=== PATIENT | female | born 1940 | race American Indian/Alaskan Native ===

== ENCOUNTER 2021-06-23 09:04 | Observation (INO) | payer MEDICARE ==
--- NOTE | 2021-06-23 09:18 | Emergency Department Report ---
ED General Adult HPI - General Chief complaint: Arrhythmia/Palpitations Stated complaint: PALPITATIONS/SYNCOPE PUI?: No Time Seen by Provider: 06/23/21 09:09 Source: patient, EMS (Verbal report received from emergency medical services. EMS documentation not available at time of chart dictation ), RN notes reviewed Mode of arrival: Stretcher Limitations: Physical Limitation - History of Present Illness Initial comments: Primary CARE doctor: Ed maciel The patient is an 80-year-old female. She is not known to myself previously. She has a history of hypertension. She also has a history of possible GERD/gastritis. She is brought to the hospital today by emergency medical services. History primarily obtained from EMS. EMS brings the patient to the ER as the patient had an episode of syncope yesterday and this morning, and may have had some chest pain. The patient herself is a little bit confused. She denies physical pain to myself. She indicates nothing is bothering her at this time. Patient not currently accompanied by friends or family at this time, and does not describe qualitative nature of symptoms, exacerbating factors leading factors or aggravating factors. To me, the patient currently denies headache, neck pain, abdominal pain, vomiting, urinary symptoms, focal extremity weakness and numbness. -: days(s) (As per EMS, last night and this morning.) Location: chest (As per EMS chest. Patient denies chest pain to myself) - Related Data Home Medications Medication Instructions Recorded Confirmed Last Taken Metoprolol [Lopressor] 12.5 mg PO BID 06/23/21 06/23/21 Unknown Pantoprazole [Protonix] 40 mg PO BID 06/23/21 06/23/21 Unknown Sertraline [Zoloft] 25 mg PO QDAY 06/23/21 06/23/21 Unknown traZODone [Desyrel] 100 mg PO QHS 06/23/21 06/23/21 Unknown Allergies Allergy/AdvReac Type Severity Reaction Status Date / Time gabapentin AdvReac Unknown Verified 06/23/21 09:41 lidocaine AdvReac Unknown Verified 06/23/21 10:17 naproxen AdvReac Unknown Verified 06/23/21 10:17 nut - unspecified AdvReac Unknown Verified 06/23/21 10:17 onion AdvReac Unknown Verified 06/23/21 09:41 sucralfate AdvReac Unknown Verified 06/23/21 10:17 ED Review of Systems ROS: Stated complaint: PALPITATIONS/SYNCOPE Other details as noted in HPI Constitutional: denies: fever Eyes: denies: eye discharge Respiratory: denies: cough Cardiovascular: chest pain, syncope Gastrointestinal: denies: abdominal pain, vomiting, hematemesis, melena, hematochezia Genitourinary: denies: dysuria Neurological: weakness, confusion ED Past Medical Hx - Medications Home Medications: Home Medications Medication Instructions Recorded Confirmed Last Taken Type Metoprolol [Lopressor] 12.5 mg PO BID 06/23/21 06/23/21 Unknown History Pantoprazole [Protonix] 40 mg PO BID 06/23/21 06/23/21 Unknown History Sertraline [Zoloft] 25 mg PO QDAY 06/23/21 06/23/21 Unknown History traZODone [Desyrel] 100 mg PO QHS 06/23/21 06/23/21 Unknown History ED Physical Exam - General Limitations: Physical Limitation, Other (Patient is a poor historian) General appearance: alert, in no apparent distress - Head Head exam: Present: atraumatic, normocephalic - Eye Eye exam: Present: normal appearance, EOMI. Absent: nystagmus - ENT ENT exam: Present: normal exam, normal orophraynx, mucous membranes moist, normal external ear exam - Neck Neck exam: Present: normal inspection, full ROM. Absent: tenderness, meningismus - Respiratory Respiratory exam: Present: normal lung sounds bilaterally. Absent: respiratory distress, wheezes, rales, rhonchi, stridor, decreased breath sounds - Cardiovascular Cardiovascular Exam: Present: normal rhythm, bradycardia, normal heart sounds. Absent: tachycardia, irregular rhythm, systolic murmur, diastolic murmur, rubs, gallop - GI/Abdominal GI/Abdominal exam: Present: soft. Absent: distended, tenderness, guarding, rebound, rigid, pulsatile mass - Extremities Exam Extremities exam: Present: normal inspection, full ROM, other (2+ pulses noted in the bilateral upper and lower extremities. There is no palpable cord. negative Homans sign. Muscular compartments are soft. The pelvis is stable.). Absent: pedal edema, calf tenderness - Back Exam Back exam: Present: normal inspection, other (Scoliosis noted). Absent: tenderness, CVA tenderness (R), CVA tenderness (L), paraspinal tenderness, vertebral tenderness - Neurological Exam Neurological exam: Present: alert, other (No facial droop. Tongue midline. Extraocular movements intact bilaterally. Facial sensation intact to light touch in V1, V2, V3 distribution bilaterally. 5 and a 5 strength in 4 extremities. Sensation intact to light touch in 4 extremities.) - Psychiatric Psychiatric exam: Present: flat affect - Skin Skin exam: Present: warm, dry, intact, normal color. Absent: rash ED Course Vital Signs 06/23/21 06/23/21 06/23/21 09:16 09:30 09:35 Temperature 97.9 F Pulse Rate 54 L 56 L Respiratory 16 20 Rate Blood Pressure 150/68 150/49 O2 Sat by Pulse 85 98 99 Oximetry 06/23/21 06/23/21 06/23/21 09:45 10:00 10:15 Temperature Pulse Rate 55 L 55 L 53 L Respiratory 16 13 15 Rate Blood Pressure 158/70 152/64 163/71 O2 Sat by Pulse 100 85 100 Oximetry 06/23/21 06/23/21 06/23/21 10:30 10:45 11:00 Temperature Pulse Rate 51 L 50 L 46 L Respiratory 12 12 11 L Rate Blood Pressure 161/72 154/71 147/60 O2 Sat by Pulse 100 100 100 Oximetry 06/23/21 06/23/21 06/23/21 11:15 11:30 12:17 Temperature Pulse Rate 56 L 68 Respiratory 11 L 15 Rate Blood Pressure 156/61 157/63 157/63 O2 Sat by Pulse 99 Oximetry 06/23/21 06/23/21 06/23/21 12:31 12:45 13:00 Temperature Pulse Rate 63 52 L 50 L Respiratory 13 15 15 Rate Blood Pressure 167/72 157/63 166/66 O2 Sat by Pulse 98 99 98 Oximetry 06/23/21 06/23/21 06/23/21 13:15 13:31 13:45 Temperature Pulse Rate 60 48 L 47 L Respiratory 13 12 11 L Rate Blood Pressure 166/66 166/66 166/66 O2 Sat by Pulse 100 99 100 Oximetry 06/23/21 06/23/21 06/23/21 14:00 14:15 14:31 Temperature Pulse Rate 47 L 67 57 L Respiratory 12 13 12 Rate Blood Pressure 168/69 168/69 168/69 O2 Sat by Pulse 100 100 100 Oximetry 06/23/21 06/23/21 14:45 15:01 Temperature Pulse Rate 76 89 Respiratory 14 21 Rate Blood Pressure 168/69 168/69 O2 Sat by Pulse 100 Oximetry - Reevaluation(s) Reevaluation #1: 06/23/21 10:19 Differential diagnosis, including but not limited to: Orthostasis, vagal event, structural cardiac disease, thyroid derangement, pneumonia, urinary tract infection, pulmonary embolism Assessment and plan: 80-year-old female, who was afebrile, with reassuring vital signs, who is not in any acute distress at this time, with an EMS articulated complaint of syncope x2, and chest pain. The patient is not currently tachycardic, tachypneic or hypoxic She is a little bit confused at this time. Laboratory studies pending, CT scan of the brain and chest pending. Urinalysis pending. She is a [facility] patient so we will discuss with their help physician. Anticipate admission. Reevaluation #2: 06/23/21 11:07 Laboratory studies reviewed and appreciated. CT scans pending. Contacted [facility] physician, Dr. Winter Discussed history, physical, pertinent laboratory studies, pending imaging studies and plan of care. She will contact the patient's son/power of deputy commonwealth's attorney's, and determine if they are amenable to being moved to a [facility] facility. 06/23/21 13:15 Patient resting comfortably in stretcher, in no acute distress. CT scan negative for acute findings. CT scan of the chest negative for acute findings. Pulmonary hypertension is suggested. Patient had contrast extravasation in the left upper extremity. I have perso dewayne evaluated the arm. It is warm, but nontender, the compartments are not tense, warm compresses are applied, 2+ pulses noted in the left upper extremity, with good capillary refill. Elevate the extremity, 5 warm compresses, supportive care 06/23/21 13:17 discussed with the aforementioned [facility] physician. They are trying to set up a bed in one of the [facility] facilities. [facility] physician states that she has discussed with patient's family/power of deputy commonwealth's attorney. They have provided consent for transfer. 06/23/21 14:10 Awaiting callback from [facility]. Awaiting bed placement. No acute distress Reevaluation #3: 06/23/21 15:03 Patient is agitated. She is trying to get up and out of bed. She is demented and lacks decision-making capacity. She will be medicated with Versed Called back to [facility]. Requested update on bed placement. They inform us that they are still awaiting bed placement. care will be transferred to the oncoming ER physician, to follow-up on [facility] recommendations. Please note that this patient is experiencing a delay in ultimate disposition, secondary to us waiting for [facility] to assign a bed.. They placed this patient in for a bed request 2015. It is now 3:06 PM. If [facility] not able to accommodate with the bed at one of their facilities, we will admit the patient to this hospital. 06/23/21 15:29 Change in plans. Patient will be admitted here to this hospital. She has received multiple doses of midazolam. We discussed with [facility] physician, Dash Ward not able to arrange transportation until 9:00 this evening. In my opinion this represents an unsafe situation. Hospital physician, Dr. Bryn Eubanks, To admit patient to the medical service. [facility] physician has provided authorization for this patient to be admitted to this hospital. Patient given Plavix given her documented allergy/intolerance to NSAIDs and/or aspirin ED Medical Decision Making - Lab Data Result diagrams: 06/23/21 09:51 06/23/21 09:51 Vital Signs 06/23/21 09:35 Temperature 97.9 F Pulse Rate 56 L Respiratory 20 Rate Blood Pressure 150/49 O2 Sat by Pulse 99 Oximetry Lab Results 06/23/21 06/23/21 06/23/21 Range/Units 09:50 09:50 09:51 WBC 3.6 L (4.5-11.0) K/mm3 RBC 4.46 (3.65-5.03) M/mm3 Hgb 11.0 (10.1-14.3) gm/dl Hct 35.5 (30.3-42.9) % MCV 80 (79-97) fl MCH 25 L (28-32) pg MCHC 31 (30-34) % RDW 16.3 H (13.2-15.2) % Plt Count 213 (140-440) K/mm3 Lymph % (Auto) 34.5 (13.4-35.0) % Delta % (Auto) 8.2 H (0.0-7.3) % Eos % (Auto) 0.6 (0.0-4.3) % Baso % (Auto) 0.4 (0.0-1.8) % Lymph # (Auto) 1.2 (1.2-5.4) K/mm3 Delta # (Auto) 0.3 (0.0-0.8) K/mm3 Eos # (Auto) 0.0 (0.0-0.4) K/mm3 Baso # (Auto) 0.0 (0.0-0.1) K/mm3 Seg Neutrophils % 56.3 (40.0-70.0) % Seg Neutrophils # 2.0 (1.8-7.7) K/mm3 PT 14.6 (12.2-14.9) Sec. INR 1.03 (0.87-1.13) D-Dimer 770.24 H (0-234) ng/mlDDU Sodium (137-145) mmol/L Potassium (3.6-5.0) mmol/L Chloride (98-107) mmol/L Carbon Dioxide (22-30) mmol/L Anion Gap mmol/L BUN (7-17) mg/dL Creatinine (0.6-1.2) mg/dL Estimated GFR ml/min BUN/Creatinine Ratio % Glucose (65-100) mg/dL Calcium (8.4-10.2) mg/dL Magnesium (1.7-2.3) mg/dL Total Bilirubin (0.1-1.2) mg/dL AST (5-40) units/L ALT (7-56) units/L Alkaline Phosphatase (35-129) units/L Troponin T (0.00-0.029) ng/mL Total Protein (6.3-8.2) g/dL Albumin (3.9-5) g/dL Albumin/Globulin Ratio % TSH 0.236 L (0.270-4.200) mlU/mL Urine RBC (Auto) (0.0-6.0) /HPF U Epithel Cells (Auto) (0-13.0) /HPF 06/23/21 06/23/21 Range/Units 09:51 Unknown WBC (4.5-11.0) K/mm3 RBC (3.65-5.03) M/mm3 Hgb (10.1-14.3) gm/dl Hct (30.3-42.9) % MCV (79-97) fl MCH (28-32) pg MCHC (30-34) % RDW (13.2-15.2) % Plt Count (140-440) K/mm3 Lymph % (Auto) (13.4-35.0) % Delta % (Auto) (0.0-7.3) % Eos % (Auto) (0.0-4.3) % Baso % (Auto) (0.0-1.8) % Lymph # (Auto) (1.2-5.4) K/mm3 Delta # (Auto) (0.0-0.8) K/mm3 Eos # (Auto) (0.0-0.4) K/mm3 Baso # (Auto) (0.0-0.1) K/mm3 Seg Neutrophils % (40.0-70.0) % Seg Neutrophils # (1.8-7.7) K/mm3 PT (12.2-14.9) Sec. INR (0.87-1.13) D-Dimer (0-234) ng/mlDDU Sodium 141 (137-145) mmol/L Potassium 3.6 (3.6-5.0) mmol/L Chloride 102.9 (98-107) mmol/L Carbon Dioxide 27 (22-30) mmol/L Anion Gap 15 mmol/L BUN 13 (7-17) mg/dL Creatinine 0.7 (0.6-1.2) mg/dL Estimated GFR > 60 ml/min BUN/Creatinine Ratio 19 % Glucose 87 (65-100) mg/dL Calcium 9.2 (8.4-10.2) mg/dL Magnesium 2.00 (1.7-2.3) mg/dL Total Bilirubin 0.60 (0.1-1.2) mg/dL AST 10 (5-40) units/L ALT 7 (7-56) units/L Alkaline Phosphatase 56 (35-129) units/L Troponin T < 0.010 (0.00-0.029) ng/mL Total Protein 6.6 (6.3-8.2) g/dL Albumin 4.0 (3.9-5) g/dL Albumin/Globulin Ratio 1.5 % TSH (0.270-4.200) mlU/mL Urine RBC (Auto) 3.0 (0.0-6.0) /HPF U Epithel Cells (Auto) 4.0 (0-13.0) /HPF - EKG Data -: EKG Interpreted by Pr EKG shows normal: sinus rhythm Rate: bradycardia - EKG Data When compared to previous EKG there are: previous EKG unavailable 06/23/21 10:18 The EKG is interpreted 09: 2 8 Sinus rhythm, bradycardia, rate 55 bpm. Normal axis, normal P wave axis, low voltage, poor R wave progression. Abnormal EKG. Not a STEMI. There is no prior for comparison. - Radiology Data Radiology results: pending, report reviewed, image reviewed [facility] [address] [place] [address] XRay Report Signed Patient: SYD FISH MR#: [id number] : 1940 Acct:[id number] Age/Sex: 80 / F ADM Date: 06/23/21 Loc: ED Attending Dr: Ordering Physician: NATE GILMAN MD Date of Service: 06/23/21 Procedure(s): XR chest 1V ap Accession Number(s): [id number] cc: NATE GILMAN MD Fluoro Time In Minutes: CHEST 1 VIEW 06/23/2021 9:15 AM INDICATION / CLINICAL INFORMATION: Dysrhythmia. COMPARISON: None available. FINDINGS: SUPPORT DEVICES: None. HEART / MEDIASTINUM: No significant abnormality. LUNGS / PLEURA: No significant pulm onary or pleural abnormality. No pneumothorax. 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 IMPRESSION: 1. No acute findings. Signer Name: Tree Graves DO Signed: 06/23/2021 10:28 AM Workstation Name: [id number] Transcribed By: NS Dictated By: TREE GRAVES DO Electronically Authenticated By: TREE GRAVES DO Signed Date/Time: 06/23/21 1028 DD/ [address] SCAN OF THE HEAD: INDICATION / CLINICAL INFORMATION: 80 years Female; syncope. TECHNIQUE: Routine CT head without contrast. All CT scans at this location are performed using CT dose reduction for ALARA by means of automated exposure control. COMPARISON: None. FINDINGS: BRAIN / INTRACRANIAL CONTENTS: No acute hemorrhage, mass effect, midline shift, hydrocephalus, or acute, large territorial infarct. No chronic infarct or encephalomalacia. Periventricular confluent low-attenuation areas and also focal low-attenuation white matter lesions due to chronic small vessel disease; moderate dilatation of right temporal horn tip suggesting moderate volume loss in the right hippocampus CRANIOCERVICAL JUNCTION: No significant abnormality. ORBITS: No significant abnormality of visualized orbits. SINUSES / MASTOIDS: No significant abnormality of the visualized paranasal sinuses or mastoid air cells. ADDITIO NAL FINDINGS: None. IMPRESSION: No acute focal parenchymal lesion Signer Name: Crissy Jiménez MD Signed: 06/23/2021 11:34 AM Workstation Name: [id number] CTA CHEST WITH CONTRAST INDICATION / CLINICAL INFORMATION: Chest pain, palpitations and syncope. TECHNIQUE: Axial CT images were obtained through the chest after injection of IV contrast. 3 plane MIP and/or 3D reconstructions were produced. All CT scans at this location are performed using CT dose reduction for ALARA by means of automated exposure control. COMPARISON: None available. FINDINGS: PULMONARY ARTERIES: No pulmonary emboli. Dilatation main pulmonary artery measuring 3.2 cm in diameter THORACIC AORTA: No significant abnormality. HEART: No significant abnormality. CORONARY ARTERY CALCIFICATION: None. MEDIASTINUM / HEATHER: No significant abnormality. PLEURA: No pleural effusion. No pneumothorax. LUNGS: No acute air space or interstitial disease. Dependent subsegmental atelectasis of bilateral lungs. ADDITIONAL FINDINGS: None. UPPER ABDOMEN: Simple cyst superior pole right kidney SKELETAL STRUCTURES: No si gnificant osseous abnormality. IMPRESSION: 1. No CT evidence for pulmonary embolism. 2. No acute findings. 3. Dilatation main pulmonary artery measuring 3.2 cm in diameter, could reflect pulmonary arterial hypertension. Signer Name: Edward Maldonado MD Signed: 06/23/2021 11:52 AM Workstation Name: [email or web address] Critical care attestation.: If time is entered above; I have spent that time in minutes in the direct care of this critically ill patient, excluding procedure time. ED Disposition Clinical Impression: History of chest pain, Dementia, History of syncope Disposition: 09 ADMITTED INPATIENT Is pt being admited?: Yes Does the pt Need Aspirin: Yes Condition: Good Heart Score - HEART Score History: Slightly suspicious EKG: Non-specific Age: > 65 Risk factors: 1-2 risk factors Troponin: < normal limit HEART Score: 4 - EKG Read Time Time EKG Completed: : EKG Read Time: :28 - Critical Actions Critical Actions: 4-6 pts:12-16.6% risk of adverse cardiac event. Should be admitted
[2021-06-23] MEDS ORDERED: ACETAMINOPHEN 500 MG TAB PO SCH (10:00)
[2021-06-23] MEDS ORDERED: NITROGLYCERIN 0.4 MG TAB SUBL SL PRN (10:00)
[2021-06-23] MEDS ORDERED: SODIUM CHLORIDE 0.9% 250ML 250 ML IV SCH (10:00)
[2021-06-23] MEDS ORDERED: PANTOPRAZOLE 40 MG INJ IV SCH (10:00)
[2021-06-23] MEDS ORDERED: ONDANSETRON 4 MG/2 ML INJ IV SCH (10:00)
--- NOTE | 2021-06-23 10:32 | XRay Report ---
CHEST 1 VIEW 06/23/2021 9:15 AM INDICATION / CLINICAL INFORMATION: Dysrhythmia. COMPARISON: None available. FINDINGS: SUPPORT DEVICES: None. HEART / MEDIASTINUM: No significant abnormality. LUNGS / PLEURA: No significant pulmonary or pleural abnormality. No pneumothorax. ADDITIONAL FINDINGS: Left reverse total shoulder arthroplasty. Degeneration of the right shoulder gir dle. IMPRESSION: 1. No acute findings. Signer Name: Tree Doe DO Signed: 06/23/2021 10:28 AM Workstation Name: [id number]
[2021-06-23 10:33] LABS: Amorphous Crystals,Urine 1+; Mucus,Urine 3+ /HPF; Renal Epithelial Cells,Urine <1 /LPF
[2021-06-23 10:38] LABS: Basophils % (Auto) 0.4 % (0.0-1.8); Eosinophils % (Auto) 0.6 % (0.0-4.3); Hematocrit 35.5 % (30.3-42.9); Lymphocytes # (Auto) 1.2 K/mm3 (1.2-5.4); Lymphocytes % (Auto) 34.5 % (13.4-35.0); Mean Corpuscular HGB Conc 31 % (30-34); Mean Corpuscular Volume 80 fl (79-97); Monocytes # (Auto) 0.3 K/mm3 (0.0-0.8); Monocytes % (Auto) 8.2 % (0.0-7.3); Platelet Count 213 K/mm3 (140-440); Red Blood Count 4.46 M/mm3 (3.65-5.03); Red Cell Distribution Width 16.3 % (13.2-15.2)
[2021-06-23 10:46] LABS: Alanine Aminotransferase 7 units/L (7-56); Blood Urea Nitrogen 13 mg/dL (7-17); Calcium 9.2 mg/dL (8.4-10.2); Hemolysis Index 3
[2021-06-23 10:48] LABS: BUN/Creatinine Ratio 19
[2021-06-23 10:58] LABS: INR 1.03 (0.87-1.13)
[2021-06-23 11:18] LABS: Bilirubin,Urine NEG (Negative); Blood,Urine NEG (Negative); Color,Urine Yellow (Yellow); Protein,Urine <15 mg/dL mg/dL (Negative)
--- NOTE | 2021-06-23 12:38 | Cat Scan Report ---
NONENHANCED CT SCAN OF THE HEAD: INDICATION / CLINICAL INFORMATION: 80 years Female; syncope. TECHNIQUE: Routine CT head without contrast. All CT scans at this location are performed using CT dos e reduction for ALARA by means of automated exposure control. COMPARISON: None. FINDINGS: BRAIN / INTRACRANIAL CONTENTS: No acute hemorrhage, mass effect, midline shift, hydrocephalus, or acu te, large territorial infarct. No chronic infarct or encephalomalacia. Periventricular confluent low- attenuation areas and also focal low-attenuation white matter lesions due to chronic small vessel dis ease; moderate dilatation of right temporal horn tip suggesting moderate volume loss in the right hip pocampus CRANIOCERVICAL JUNCTION: No significant abnormality. ORBITS: No significant abnormality of visualized orbits. SINUSES / MASTOIDS: No significant abnormality of the visualized paranasal sinuses or mastoid air dandre ls. ADDITIONAL FINDINGS: None. IMPRESSION: No acute focal parenchymal lesion Signer Name: Crissy Jiménez MD Signed: 06/23/2021 12:34 PM Workstation Name: [id number]
--- NOTE | 2021-06-23 12:57 | Cat Scan Report ---
CTA CHEST WITH CONTRAST INDICATION / CLINICAL INFORMATION: Chest pain, palpitations and syncope. TECHNIQUE: Axial CT images were obtained through the chest after injection of IV contrast. 3 plane NH P and/or 3D reconstructions were produced. All CT scans at this location are performed using CT dose reduction for ALARA by means of automated exposure control. COMPARISON: None available. FINDINGS: PULMONARY ARTERIES: No pulmonary emboli. Dilatation main pulmonary artery measuring 3.2 cm in diamete r THORACIC AORTA: No significant abnormality. HEART: No significant abnormality. CORONARY ARTERY CALCIFICATION: None. MEDIASTINUM / HEATHER: No significant abnormality. PLEURA: No pleural effusion. No pneumothorax. LUNGS: No acute air space or interstitial disease. Dependent subsegmental atelectasis of bilateral ken ngs. ADDITIONAL FINDINGS: None. UPPER ABDOMEN: Simple cyst superior pole right kidney SKELETAL STRUCTURES: No significant osseous abnormality. IMPRESSION: 1. No CT evidence for pulmonary embolism. 2. No acute findings. 3. Dilatation main pulmonary artery measuring 3.2 cm in diameter, could reflect pulmonary arterial hy pertension. Signer Name: Edward Maldonado MD Signed: 06/23/2021 12:52 PM Workstation Name: [email or web address]
[2021-06-23] MEDS ORDERED: CLOPIDOGREL 75 MG TAB PO ONE (13:18)
[2021-06-23] MEDS ORDERED: MIDAZOLAM 2 MG/2 ML INJ IV ONE ×3 (15:03→15:54)
[2021-06-23] MEDS ORDERED: LORazepam 2 MG/ML VIAL IV PRN (17:06)
--- NOTE | 2021-06-23 22:19 | History and Physical Report ---
History of Present Illness Date of examination: 06/23/21 Date of admission: 06/23/21 15:30 Chief complaint: Chest pain and syncope 1 day History of present illness: 80-year-old female with history of hypertension and depression from [facility] brought in by EMS for an episode of syncope yesterday and this morning. Also from chest pain. Chest pain is resolved. Patient has a very poor historian. No diaphoresis. No shortness of breath. No precipitating injury events for syncope yesterday and today. No fever or chills. Patient has been confused. No family at bedside. No dysuria fever or chills. -past medical history HTN,Gerd, depression - past surgical history unavailable - Family history unavailable - social history unavailable Review of Systems ROS: Stated complaint: PALPITATIONS/SYNCOPE Other details as noted in HPI Constitutional: denies: fever Eyes: denies: eye discharge Respiratory: denies: cough Cardiovascular: chest pain, syncope Gastrointestinal: denies: abdominal pain, vomiting, hematemesis, melena, hematochezia Genitourinary: denies: dysuria Neurological: weakness, confusion Medications and Allergies Allergies Allergy/AdvReac Type Severity Reaction Status Date / Time gabapentin AdvReac Unknown Verified 06/23/21 09:41 lidocaine AdvReac Unknown Verified 06/23/21 10:17 naproxen AdvReac Unknown Verified 06/23/21 10:17 nut - unspecified AdvReac Unknown Verified 06/23/21 10:17 onion AdvReac Unknown Verified 06/23/21 09:41 sucralfate AdvReac Unknown Verified 06/23/21 10:17 Home Medications Medication Instructions Recorded Confirmed Last Taken Type Metoprolol [Lopressor] 12.5 mg PO BID 06/23/21 06/23/21 Unknown History Pantoprazole [Protonix] 40 mg PO BID 06/23/21 06/23/21 Unknown History Sertraline [Zoloft] 25 mg PO QDAY 06/23/21 06/23/21 Unknown History traZODone [Desyrel] 100 mg PO QHS 06/23/21 06/23/21 Unknown History Active Meds: Active Medications Lorazepam (Lorazepam 2 Mg/Ml Vial) 2 mg IV Q3HR PRN PRN Reason: Agitation Last Admin: 06/23/21 17:13 Dose: 2 mg Documented by: Nitroglycerin (Nitroglycerin 0.4 Mg Tab Subl) 0.4 mg SL .Q5MIN PRN PRN Reason: Chest Pain Exam - Constitutional Vitals: Temp Pulse Resp BP Pulse Ox 97.9 F 47 L 14 158/73 99 06/23/21 09:35 06/23/21 17:31 06/23/21 17:31 06/23/21 17:31 06/23/21 21:05 General appearance: Present: no acute distress, well-nourished - EENT Eyes: Present: PERRL ENT: hearing intact, clear oral mucosa - Neck Neck: Present: supple, normal ROM - Respiratory Respiratory effort: normal Respiratory: bilateral: CTA - Cardiovascular Heart rate: 78 Rhythm: regular Heart Sounds: Present: S1 & S2. Absent: rub, click - Extremities Extremities: no ischemia, pulses intact, pulses symmetrical, No edema Peripheral Pulses: within normal limits - Abdominal General gastrointestinal: Present: soft, non-tender, non-distended, normal bowel sounds Female genitourinary: Present: normal - Rectal Rectal Exam: deferred - Integumentary Integumentary: Present: clear, warm, dry - Musculoskeletal Musculoskeletal: gait normal, strength equal bilaterally - Psychiatric Psychiatric: appropriate mood/affect, intact judgment & insight - Neurologic Neurologic: CNII-XII intact, moves all extremities - Allied Health Allied health notes reviewed: nursing, case management HEART Score - HEART Score History: Moderately suspicious EKG: Non-specific Age: > 65 Risk factors: 1-2 risk factors Troponin: Troponin T < 0.010 ng/mL (0.00-0.029) 06/23/21 09:51 Troponin: < normal limit HEART Score: 5 - Critical Actions Critical Actions: 4-6 pts:12-16.6% risk of adverse cardiac event. Should be ad mitted Results - Labs CBC & Chem 7: 06/24/21 05:11 06/24/21 05:11 Labs: Laboratory Last Values WBC 3.6 K/mm3 (4.5-11.0) L 06/23/21 09:51 RBC 4.46 M/mm3 (3.65-5.03) 06/23/21 09:51 Hgb 11.0 gm/dl (10.1-14.3) 06/23/21 09:51 Hct 35.5 % (30.3-42.9) 06/23/21 09:51 MCV 80 fl (79-97) 06/23/21 09:51 MCH 25 pg (28-32) L 06/23/21 09:51 MCHC 31 % (30-34) 06/23/21 09:51 RDW 16.3 % (13.2-15.2) H 06/23/21 09:51 Plt Count 213 K/mm3 (140-440) 06/23/21 09:51 Lymph % (Auto) 34.5 % (13.4-35.0) 06/23/21 09:51 [place] % (Auto) 8.2 % (0.0-7.3) H 06/23/21 09:51 Eos % (Auto) 0.6 % (0.0-4.3) 06/23/21 09:51 Baso % (Auto) 0.4 % (0.0-1.8) 06/23/21 09:51 Lymph # (Auto) 1.2 K/mm3 (1.2-5.4) 06/23/21 09:51 [place] # (Auto) 0.3 K/mm3 (0.0-0.8) 06/23/21 09:51 Eos # (Auto) 0.0 K/mm3 (0.0-0.4) 06/23/21 09:51 Baso # (Auto) 0.0 K/mm3 (0.0-0.1) 06/23/21 09:51 Seg Neutrophils % 56.3 % (40.0-70.0) 06/23/21 09:51 Seg Neutrophils # 2.0 K/mm3 (1.8-7.7) 06/23/21 09:51 PT 14.6 Sec. (12.2-14.9) 06/23/21 09:50 INR 1.03 (0.87-1.13) 06/23/21 09:50 D-Dimer 770.24 ng/mlDDU (0-234) H 06/23/21 09:50 Sodium 141 mmol/L (137-145) 06/23/21 09:51 Potassium 3.6 mmol/L (3.6-5.0) 06/23/21 09:51 Chloride 102.9 mmol/L (98-107) 06/23/21 09:51 Carbon Dioxide 27 mmol/L (22-30) 06/23/21 09:51 Anion Gap 15 mmol/L 06/23/21 09:51 BUN 13 mg/dL (7-17) 06/23/21 09:51 Creatinine 0.7 mg/dL (0.6-1.2) 06/23/21 09:51 Estimated GFR > 60 ml/min 06/23/21 09:51 BUN/Creatinine Ratio 19 % 06/23/21 09:51 Glucose 87 mg/dL (65-100) 06/23/21 09:51 Calcium 9.2 mg/dL (8.4-10.2) 06/23/21 09:51 Magnesium 2.00 mg/dL (1.7-2.3) 06/23/21 09:51 Total Bilirubin 0.60 mg/dL (0.1-1.2) 06/23/21 09:51 AST 10 units/L (5-40) 06/23/21 09:51 ALT 7 units/L (7-56) 06/23/21 09:51 Alkaline Phosphatase 56 units/L (35-129) 06/23/21 09:51 Troponin T < 0.010 ng/mL (0.00-0.029) 06/23/21 09:51 NT-Pro-B Natriuret Pep 315.9 pg/mL (0-900) 06/23/21 09:51 Total Protein 6.6 g/dL (6.3-8.2) 06/23/21 09:51 Albumin 4.0 g/dL (3.9-5) 06/23/21 09:51 Albumin/Globulin Ratio 1.5 % 06/23/21 09:51 TSH 0.236 mlU/mL (0.270-4.200) L 06/23/21 09:50 Urine Color Yellow (Yellow) 06/23/21 Unknown Urine Turbidity Clear (Clear) 06/23/21 Unknown Urine pH 6.0 (5.0-7.0) 06/23/21 Unknown Ur Specific [place] 1.020 (1.003-1.030) 06/23/21 Unknown Urine Protein <15 mg/dl mg/dL (Negative) 06/23/21 Unknown Urine Glucose (UA) Neg mg/dL (Negative) 06/23/21 Unknown Urine Ketones Tr mg/dL (Negative) 06/23/21 Unknown Urine Blood Neg (Negative) 06/23/21 Unknown Urine Nitrite Neg (Negative) 06/23/21 Unknown Ur Reducing Substances Not Reportable 06/23/21 Unknown Urine Bilirubin Neg (Negative) 06/23/21 Unknown Urine Ictotest Not Reportable 06/23/21 Unknown Urine Urobilinogen 4.0 mg/dL (<2.0) 06/23/21 Unknown Ur Leukocyte Esterase Neg (Negative) 06/23/21 Unknown Urine WBC (Auto) 4.0 /HPF (0.0-6.0) 06/23/21 Unknown Urine RBC (Auto) 3.0 /HPF (0.0-6.0) 06/23/21 Unknown U Epithel Cells (Auto) 4.0 /HPF (0-13.0) 06/23/21 Unknown Ur Renal Epithelial Cell <1 /LPF 06/23/21 Unknown Amorphous Crystals 1+ 06/23/21 Unknown Urine Mucus 3+ /HPF 06/23/21 Unknown Urine Yeast (Budding) 3+ /HPF 06/23/21 Unknown - Imaging and Cardiology EKG: report reviewed Imaging and Cardiology: Chest x-ray No acute findings Chest CTA No CT evidence for pulmonary embolism No acute findings Distal main pulmonary artery measuring 3.2 cm in diameter Could reflect pulmonary arterial hypertension No acute findings head CT Assessment and Plan Advance Directives: Yes (Full code) VTE prophylaxis?: Chemical Plan of care discussed with patient/family: Yes - Patient Problems (1) Syncope and collapse Current Visit: Yes Status: Acute Plan to address problem: Syncope work-up Coronary duplex scan Echocardiogram IV fluids (2) Acute chest pain Current Visit: Yes Status: Acute Plan to address problem: Serial troponins and Lexiscan in the morning (3) Hypertension Current Visit: Yes Status: Chronic Qualifiers: Hypertension type: primary hypertension Qualified Code(s): I10 - Essential (primary) hypertension Plan to address problem: Continue metoprolol (4) GERD (gastroesophageal reflux disease) Current Visit: Yes Status: Chronic Qualifiers: Esophagitis presence: without esophagitis Qualified Code(s): K21.9 - Gastro-esophageal reflux disease without esophagitis Plan to address problem: Continue PPIs (5) Depression Current Visit: Yes Status: Chronic Plan to address problem: Continue trazodone (6) DVT prophylaxis Current Visit: Yes Status: Acute Plan to address problem: On anticoagulation GI prophylaxis
[2021-06-23] MEDS ORDERED: METOCLOPRAMIDE 10 MG/2 ML INJ IV PRN (22:21)
[2021-06-23] MEDS ORDERED: MORPHINE 2 MG/1 ML INJ IV PRN (22:21)
[2021-06-23] MEDS ORDERED: ACETAMINOPHEN 325 MG TAB PO PRN (22:21)
[2021-06-23] MEDS ORDERED: ONDANSETRON 4 MG/2 ML INJ IV PRN (22:21)
[2021-06-23] MEDS ORDERED: METOPROLOL TARTRATE 25 MG TAB PO SCH (23:00)
[2021-06-23] MEDS ORDERED: FAMOTIDINE 20 MG TAB PO SCH (23:00)
[2021-06-24] MEDS: SODIUM CHLORIDE 0.9% 1000 ML 1,000 ML IV SCH (01:13)
[2021-06-24] MEDS: PANTOPRAZOLE 40 MG TAB PO SCH ×3 (01:15→21:52)
[2021-06-24] MEDS: HEPARIN 5,000 UNIT/1 ML VIAL SUB-Q SCH ×3 (01:19→21:51)
[2021-06-24 05:39] LABS: Basophils % (Auto) 0.4 % (0.0-1.8); Eosinophils # (Auto) 0.1 K/mm3 (0.0-0.4); Hematocrit 38.5 % (30.3-42.9); Hemoglobin 12.1 gm/dl (10.1-14.3); Lymphocytes # (Auto) 0.9 K/mm3 (1.2-5.4); Lymphocytes % (Auto) 26.9 % (13.4-35.0); Mean Corpuscular HGB Conc 32 % (30-34); Mean Corpuscular Volume 80 fl (79-97); Monocytes # (Auto) 0.4 K/mm3 (0.0-0.8); Monocytes % (Auto) 10.5 % (0.0-7.3); Platelet Count 221 K/mm3 (140-440); Red Blood Count 4.81 M/mm3 (3.65-5.03); Red Cell Distribution Width 16.3 % (13.2-15.2)
[2021-06-24 06:08] LABS: Alanine Aminotransferase 8 units/L (7-56); Albumin 3.9 g/dL (3.9-5); BUN/Creatinine Ratio 10; Blood Urea Nitrogen 7 mg/dL (7-17); Calcium 9.8 mg/dL (8.4-10.2); Hemolysis Index 6
[2021-06-24] MEDS ORDERED: REGADENOSON 0.4 MG/5 ML INJ IV ONE ×2 (08:16)
--- NOTE | 2021-06-24 09:03 | Electrocardiograph Report ---
[facility] Test Date: 2021-06-23 Test Time: 09:28:08 Pat Name: SYD FISH Department: Room: A485 Gender: F Concrete Mason: : 1940 Requested By: NATE GILMAN Order Number: [id number] Reading MD: Renzo Jara Measurements Intervals [place] Rate: 55 P: 49 VT: 169 QRS: 28 QRSD: 68 T: 10 QT: 424 QTc: 406 Interpretive Statements Sinus rhythm No previous ECG available for comparison Electronically Signed On 06-24-2021 9:02:45 EST by Renzo Jara
[2021-06-24] MEDS: SERTRALINE 25 MG TAB PO SCH (12:46)
--- NOTE | 2021-06-24 13:11 | Vascular Lab Report ---
DUPLEX DOPPLER ULTRASOUND CAROTID, BILATERAL INDICATION / CLINICAL INFORMATION: syncope. COMPARISON: None available. FINDINGS: RIGHT CAROTID: Mild calcified atherosclerotic plaque. - PLAQUE ESTIMATE (%): < 50% - CCA velocity: 67 cm/sec. - ICA peak systolic velocity: 97 cm/sec. - ICA/CCA PSV Ratio: Less than 2. Right Vertebral Artery: Antegrade flow. LEFT CAROTID: Minimal calcified atherosclerotic plaque. - PLAQUE ESTIMATE (%): < 50% - CCA velocity: 68 cm/sec. - ICA peak systolic velocity: 94 cm/sec. - ICA/CCA PSV Ratio: Less than 2. Left Vertebral Artery: Antegrade flow. IMPRESSION: 1. Right Internal Carotid Artery: Less than 50% diameter stenosis. 2. Left Internal Carotid Artery: Less than 50% diameter stenosis. Velocity criteria are extrapolated from diameter data as defined by the Society of Radiologists in Ul trasound Consensus Conference, Radiology 2003; 229;340-346. NO STENOSIS (NORMAL) - Plaque = none; ICA PSV < 125 cm/sec; ICA/CCA PSV Ratio < 2.0 <50% STENOSIS - Plaque < 50%; ICA PSV < 125 cm/sec; ICA/CCA PSV Ratio < 2.0 50-69% STENOSIS - Plaque > 50%; ICA PSV = 125-230 cm/sec; ICA/CCA PSV Ratio = 2.0-4.0 >70% BUT <100% STENOSIS - Plaque > 50%; ICA PSV > 230 cm/sec; ICA/CCA PSV Ratio > 4.0 NEAR OCCLUSION - Plaque = visible lumen; ICA PSV = high/low/none; ICA/CCA PSV Ratio = variable TOTAL OCCLUSION - Plaque = no lumen; ICA PSV = none; ICA/CCA PSV Ratio = N/A Scribed by: Roula Smart RDMS, RVT Scribed: 06/24/2021 11:30 AM I have reviewed the images, agree with this report, and edited this report as needed. Signer Name: Rufus Foster MD Signed: 06/24/2021 1:07 PM Workstation Name: [employer] [id number]
--- NOTE | 2021-06-24 14:01 | Progress Note ---
Assessment and Plan Assessment and plan: 80-year-old female with history of hypertension and depression from [facility] brought in by EMS for an episode of syncope yesterday and this morning. Also from chest pain. Chest pain is resolved. Patient has a very poor historian. No diaphoresis. No shortness of breath. No precipitating injury events for syncope yesterday and today. No fever or chills. Patient has been confused. No family at bedside. No dysuria fever or chills. 06/24: Still with Bradycardia, awaiting ECHO and stress test result. Patient with bradycardia remains persistent of discontinue beta-bayron today I will al so asked the nurses to ambulate her to see what type of response we get with ambulation. Will reevaluate her in a.m. and possibly discharge if all things check out without the beta-bayron. She probably will need evaluation by EP for further evaluation if bradycardia persist and she remains symptomatic (1) Syncope and collapse likely vasovagal Current Visit: Yes Status: Acute Plan to address problem: Syncope work-up Coronary duplex scan Echocardiogram IV fluids (2) Acute chest pain possibly Costondritis Current Visit: Yes Status: Acute Plan to address problem: Serial troponins and Lexiscan in the morning (3) Hypertension Current Visit: Yes Status: Chronic Qualifiers: Hypertension type: primary hypertension Qualified Code(s): I10 - Essential (primary) hypertension Plan to address problem: Continue metoprolol (4) GERD (gastroesophageal reflux disease) Current Visit: Yes Status: Chronic Qualifiers: Esophagitis presence: without esophagitis Qualified Code(s): K21.9 - Gastro-esophageal reflux disease without esophagitis Plan to address problem: Continue PPIs (5) Depression Current Visit: Yes Status: Chronic Plan to address problem: Continue trazodone (6) Bradycardia (7) DVT prophylaxis Current Visit: Yes Status: Acute Plan to address problem: On anticoagulation GI prophylaxis History Interval history: Patient seen and examined resting comfortably no new complaints elicited Hospitalist Physical - Physical exam Narrative exam: VITAL SIGNS: Reviewed. GENERAL: The patient appears normally developed, Vital signs as documented. HEAD: No signs of head trauma. EYES: Pupils are equal. Extraocular motions intact. EARS: Hearing grossly intact. MOUTH: Oropharynx is normal. NECK: No adenopathy, no JVD. CHEST: Chest with clear breath sounds bilaterally. No wheezes, rales, or rhonchi. CARDIAC: Regular rhythm with slow rate. S1 and S2, without murmurs, gallops, or rubs. VASCULAR: No Edema. Peripheral pulses normal and equal in all extremities. ABDOMEN: Soft, non tender and non distended. No rebound or guarding, and no masses palpated. Bowel Sounds normal. MUSCULOSKELETAL: Good range of motion of all major joints. Extremities without clubbing, cyanosis or edema. NEUROLOGIC EXAM: Alert and oriented x 3 No focal sensory or strength deficits. Speech normal. Follows commands. PSYCHIATRIC: Mood normal. SKIN: detail exam as documented in skin assessment - Constitutional Vitals: Temp Pulse Resp BP Pulse Ox 97.9 F 51 L 16 131/64 100 06/24/21 04:52 06/24/21 07:33 06/24/21 04:52 06/24/21 09:07 06/24/21 07:33 General appearance: Present: no acute distress, well-nourished HEART Score - HEART Score EKG: Non-specific Age: > 65 Risk factors: 1-2 risk factors Troponin: Troponin T < 0.010 ng/mL (0.00-0.029) 06/23/21 09:51 Troponin: < normal limit - Critical Actions Critical Actions: 4-6 pts:12-16.6% risk of adverse cardiac event. Should be admitted Results - Labs CBC & Chem 7: 06/24/21 05:11 06/24/21 05:11 Labs: Laboratory Last Values WBC 3.5 K/mm3 (4.5-11.0) L 06/24/21 05:11 RBC 4.81 M/mm3 (3.65-5.03) 06/24/21 05:11 Hgb 12.1 gm/dl (10.1-14.3) 06/24/21 05:11 Hct 38.5 % (30.3-42.9) 06/24/21 05:11 MCV 80 fl (79-97) 06/24/21 05:11 MCH 25 pg (28-32) L 06/24/21 05:11 MCHC 32 % (30-34) 06/24/21 05:11 RDW 16.3 % (13.2-15.2) H 06/24/21 05:11 Plt Count 221 K/mm3 (140-440) 06/24/21 05:11 Lymph % (Auto) 26.9 % (13.4-35.0) 06/24/21 05:11 [place] % (Auto) 10.5 % (0.0-7.3) H 06/24/21 05:11 Eos % (Auto) 3.0 % (0.0-4.3) 06/24/21 05:11 Baso % (Auto) 0.4 % (0.0-1.8) 06/24/21 05:11 Lymph # (Auto) 0.9 K/mm3 (1.2-5.4) L 06/24/21 05:11 [place] # (Auto) 0.4 K/mm3 (0.0-0.8) 06/24/21 05:11 Eos # (Auto) 0.1 K/mm3 (0.0-0.4) 06/24/21 05:11 Baso # (Auto) 0.0 K/mm3 (0.0-0.1) 06/24/21 05:11 Seg Neutrophils % 59.2 % (40.0-70.0) 06/24/21 05:11 Seg Neutrophils # 2.1 K/mm3 (1.8-7.7) 06/24/21 05:11 PT 14.6 Sec. (12.2-14.9) 06/23/21 09:50 INR 1.03 (0.87-1.13) 06/23/21 09:50 D-Dimer 770.24 ng/mlDDU (0-234) H 06/23/21 09:50 Sodium 142 mmol/L (137-145) 06/24/21 05:11 Potassium 3.8 mmol/L (3.6-5.0) 06/24/21 05:11 Chloride 104.1 mmol/L (98-107) 06/24/21 05:11 Carbon Dioxide 29 mmol/L (22-30) 06/24/21 05:11 Anion Gap 13 mmol/L 06/24/21 05:11 BUN 7 mg/dL (7-17) 06/24/21 05:11 Creatinine 0.7 mg/dL (0.6-1.2) 06/24/21 05:11 Estimated GFR > 60 ml/min 06/24/21 05:11 BUN/Creatinine Ratio 10 % 06/24/21 05:11 Glucose 75 mg/dL (65-100) 06/24/21 05:11 Calcium 9.8 mg/dL (8.4-10.2) 06/24/21 05:11 Magnesium 2.00 mg/dL (1.7-2.3) 06/23/21 09:51 Total Bilirubin 0.60 mg/dL (0.1-1.2) 06/24/21 05:11 AST 11 units/L (5-40) 06/24/21 05:11 ALT 8 units/L (7-56) 06/24/21 05:11 Alkaline Phosphatase 60 units/L (35-129) 06/24/21 05:11 Troponin T < 0.010 ng/mL (0.00-0.029) 06/23/21 09:51 NT-Pro-B Natriuret Pep 315.9 pg/mL (0-900) 06/23/21 09:51 Total Protein 6.3 g/dL (6.3-8.2) 06/24/21 05:11 Albumin 3.9 g/dL (3.9-5) 06/24/21 05:11 Albumin/Globulin Ratio 1.6 % 06/24/21 05:11 TSH 0.236 mlU/mL (0.270-4.200) L 06/23/21 09:50 Urine Color Yellow (Yellow) 06/23/21 Unknown Urine Turbidity Clear (Clear) 06/23/21 Unknown Urine pH 6.0 (5.0-7.0) 06/23/21 Unknown Ur Specific [place] 1.020 (1.003-1.030) 06/23/21 Unknown Urine Protein <15 mg/dl mg/dL (Negative) 06/23/21 Unknown Urine Glucose (UA) Neg mg/dL (Negative) 06/23/21 Unknown Urine Ketones Tr mg/dL (Negative) 06/23/21 Unknown Urine Blood Neg (Negative) 06/23/21 Unknown Urine Nitrite Neg (Negative) 06/23/21 Unknown Ur Reducing Substances Not Reportable 06/23/21 Unknown Urine Bilirubin Neg (Negative) 06/23/21 Unknown Urine Ictotest Not Reportable 06/23/21 Unknown Urine Urobilinogen 4.0 mg/dL (<2.0) 06/23/21 Unknown Ur Leukocyte Esterase Neg (Negative) 06/23/21 Unknown Urine WBC (Auto) 4.0 /HPF (0.0-6.0) 06/23/21 Unknown Urine RBC (Auto) 3.0 /HPF (0.0-6.0) 06/23/21 Unknown U Epithel Cells (Auto) 4.0 /HPF (0-13.0) 06/23/21 Unknown Ur Renal Epithelial Cell <1 /LPF 06/23/21 Unknown Amorphous Crystals 1+ 06/23/21 Unknown Urine Mucus 3+ /HPF 06/23/21 Unknown Urine Yeast (Budding) 3+ /HPF 06/23/21 Unknown Active Medications - Current Medications Current Medications: Generic Name Dose Route Start Last Admin Trade Name Freq PRN Reason Stop Dose Admin Acetaminophen 650 mg 06/23/21 22:21 Acetaminophen 325 Mg Tab PO Q4H PRN Pain MILD(1-3)/Fever >100.5/LARA Heparin Sodium (Porcine) 5,000 unit 06/23/21 22:30 06/24/21 12:45 Heparin 5,000 Unit/1 Ml Vial SUB-Q 5,000 unit Q12HR GUS Administration Sodium Chloride 1,000 mls @ 75 mls/hr 06/23/21 22:30 06/24/21 01:13 Nacl 0.9% 1000 Ml IV 75 mls/hr DIRECT GUS Administration Lorazepam 2 mg 06/23/21 17:06 06/23/21 17:13 Lorazepam 2 Mg/Ml Vial IV 2 mg Q3HR PRN Administration Agitation Metoclopramide HCl 10 mg 06/23/21 22:21 Metoclopramide 10 Mg/2 Ml Inj IV Q6H PRN Nausea And Vomiting Morphine Sulfate 2 mg 06/23/21 22:21 Morphine 2 Mg/1 Ml Inj IV Q4H PRN Pain, Moderate (4-6) Nitroglycerin 0.4 mg 06/23/21 10:00 Nitroglycerin 0.4 Mg Tab Subl SL .Q5MIN PRN Chest Pain Ondansetron HCl 4 mg 06/23/21 22:21 06/24/21 09:29 Ondansetron 4 Mg/2 Ml Inj IV 4 mg Q8H PRN Administration Nausea And Vomiting Pantoprazole Sodium 40 mg 06/23/21 23:00 06/24/21 12:45 Pantoprazole 40 Mg Tab PO 40 mg BID GUS Administration Sertraline HCl 25 mg 06/24/21 10:00 06/24/21 12:46 Sertraline 25 Mg Tab PO Not Given QDAY GUS Sodium Chloride 10 ml 06/24/21 10:00 06/24/21 12:45 Sodium Chloride 0.9% 10 Ml Flush Syringe IV 10 ml BID GUS Administration Sodium Chloride 10 ml 06/23/21 22:21 Sodium Chloride 0.9% 10 Ml Flush Syringe IV PRN PRN LINE FLUSH Trazodone HCl 100 mg 06/24/21 22:00 Trazodone 100 Mg Tab PO QHS GUS
--- NOTE | 2021-06-24 14:57 | Consultation ---
History of Present Illness Consult date: 06/24/21 Requesting physician: YURI ALLEN Consult reason: syncope History of present illness: Patient is a 80-year-old female with a past medical history of hypertension depression who presented to the ED for episodes of syncope which occurred yesterday and early this a.m. Patient history taken from chart due to patient being poor historian and not being able to answer question. At time of interview patient denied any signs or symptoms including shortness of breath, chest pain, fever, chills syncope. Patient's only stated he did not feel well but did not clarify. Patient is a [facility] patient and is previously known to our practice. Cardiology is consulted for syncope. Past History Past Medical History: hypertension, other (MDD) Past Surgical History: Other (unable to obtain) Social history: other (unable to obtain) Family history: other (unable to obtain) Medications and Allergies Allergies Allergy/AdvReac Type Severity Reaction Status Date / Time gabapentin AdvReac Unknown Verified 06/23/21 09:41 lidocaine AdvReac Unknown Verified 06/23/21 10:17 naproxen AdvReac Unknown Verified 06/23/21 10:17 nut - unspecified AdvReac Unknown Verified 06/23/21 10:17 onion AdvReac Unknown Verified 06/23/21 09:41 sucralfate AdvReac Unknown Verified 06/23/21 10:17 Home Medications Medication Instructions Recorded Confirmed Last Taken Type Metoprolol [Lopressor] 12.5 mg PO BID 06/23/21 06/23/21 Unknown History Pantoprazole [Protonix] 40 mg PO BID 06/23/21 06/23/21 Unknown History Sertraline [Zoloft] 25 mg PO QDAY 06/23/21 06/23/21 Unknown History traZODone [Desyrel] 100 mg PO QHS 06/23/21 06/23/21 Unknown History Active Meds: Active Medications Acetaminophen (Acetaminophen 325 Mg Tab) 650 mg PO Q4H PRN PRN Reason: Pain MILD(1-3)/Fever >100.5/LARA Heparin Sodium (Porcine) (Heparin 5,000 Unit/1 Ml Vial) 5,000 unit SUB-Q Q12HR GUS Last Admin: 06/24/21 12:45 Dose: 5,000 unit Documented by: Sodium Chloride (Nacl 0.9% 1000 Ml) 1,000 mls @ 75 mls/hr IV DIRECT [facility] Last Admin: 06/24/21 01:13 Dose: 75 mls/hr Documented by: Lorazepam (Lorazepam 2 Mg/Ml Vial) 2 mg IV Q3HR PRN PRN Reason: Agitation Last Admin: 06/23/21 17:13 Dose: 2 mg Documented by: Metoclopramide HCl (Metoclopramide 10 Mg/2 Ml Inj) 10 mg IV Q6H PRN PRN Reason: Nausea And Vomiting Morphine Sulfate (Morphine 2 Mg/1 Ml Inj) 2 mg IV Q4H PRN PRN Reason: Pain, Moderate (4-6) Nitroglycerin (Nitroglycerin 0.4 Mg Tab Subl) 0.4 mg SL .Q5MIN PRN PRN Reason: Chest Pain Ondansetron HCl (Ondansetron 4 Mg/2 Ml Inj) 4 mg IV Q8H PRN PRN Reason: Nausea And Vomiting Last Admin: 06/24/21 09:29 Dose: 4 mg Documented by: Pantoprazole Sodium (Pantoprazole 40 Mg Tab) 40 mg PO BID [facility] Last Admin: 06/24/21 12:45 Dose: 40 mg Documented by: Sertraline HCl (Sertraline 25 Mg Tab) 25 mg PO QDAY [facility] Last Admin: 06/24/21 12:46 Dose: Not Given Documented by: Sodium Chloride (Sodium Chloride 0.9% 10 Ml Flush Syringe) 10 ml IV BID [facility] Last Admin: 06/24/21 12:45 Dose: 10 ml Documented by: Sodium Chloride (Sodium Chloride 0.9% 10 Ml Flush Syringe) 10 ml IV PRN PRN PRN Reason: LINE FLUSH Trazodone HCl (Trazodone 100 Mg Tab) 100 mg PO QHS [facility] Review of Systems ROS unobtainable: due to mental status Physical Examination Vital Signs Pulse Ox 85 06/23/21 09:16 General appearance: no acute distress HEENT: Positive: PERRL Neck: Positive: trachea midline Cardiac: Positive: Regular Rhythm, Bradycardia Lungs: Positive: Decreased Breath Sounds Neuro: Positive: Grossly Intact Abdomen: Positive: Soft Skin: Negative: Rash, Suspicious Lesions Extremities: Present: upper extr. pulses. Absent: edema Results 06/24/21 05:11 06/24/21 05:11 Cardiac Enzymes 06/24/21 Range/Units 05:11 AST 11 (5-40) units/L CBC 06/24/21 Range/Units 05:11 WBC 3.5 L (4.5-11.0) K/mm3 RBC 4.81 (3.65-5.03) M/mm3 Hgb 12.1 (10.1-14.3) gm/dl Hct 38.5 (30.3-42.9) % Plt Count 221 (140-440) K/mm3 Lymph # (Auto) 0.9 L (1.2-5.4) K/mm3 [place] # (Auto) 0.4 (0.0-0.8) K/mm3 Eos # (Auto) 0.1 (0.0-0.4) K/mm3 Baso # (Auto) 0.0 (0.0-0.1) K/mm3 Comprehensive Metabolic Panel 06/24/21 Range/Units 05:11 Sodium 142 (137-145) mmol/L Potassium 3.8 (3.6-5.0) mmol/L Chloride 104.1 (98-107) mmol/L Carbon Dioxide 29 (22-30) mmol/L BUN 7 (7-17) mg/dL Creatinine 0.7 (0.6-1.2) mg/dL Glucose 75 (65-100) mg/dL Calcium 9.8 (8.4-10.2) mg/dL AST 11 (5-40) units/L ALT 8 (7-56) units/L Alkaline Phosphatase 60 (35-129) units/L Total Protein 6.3 (6.3-8.2) g/dL Albumin 3.9 (3.9-5) g/dL - Imaging and Cardiology Echo: pending EKG: report reviewed, image reviewed EKG interpretations - Telemetry EKG Rhythm: Sinus Bradycardia - EKG Sinus rhythms and dysrhythmias: sinus rhythm Assessment and Plan Patient is a 80-year-old female with a past medical history of hypertension depression who presented to the ED for episodes of syncope Syncope HTN MDD MPI stress test 06/24/2021-negative for signs of ischemia Plan: EKG shows sinus rhythm rate 55 no acute ischemic changes. Patient denies any chest pain. Troponins negative x1 In setting of patient's bradycardia agree with holding beta-blockers. Continue to monitor on telemetry Echo pending Carotid Doppler negative Patient seen in conjunction with Dr. Jara who agrees with this plan of care. We will continue to follow - Patient Problems (1) Bradycardia Current Visit: Yes Status: Acute (2) Depression Current Visit: Yes Status: Chronic (3) GERD (gastroesophageal reflux disease) Current Visit: Yes Status: Chronic Qualifiers: Esophagitis presence: without esophagitis Qualified Code(s): K21.9 - Gastro-esophageal reflux disease without esophagitis (4) Hypertension Current Visit: Yes Status: Chronic Qualifiers: Hypertension type: primary hypertension Qualified Code(s): I10 - Essential (primary) hypertension
[2021-06-24] MEDS: traZODone 100 MG TAB PO SCH (21:52)
[2021-06-25] MEDS: HEPARIN 5,000 UNIT/1 ML VIAL SUB-Q SCH ×2 (10:42→21:07)
[2021-06-25] MEDS: SERTRALINE 25 MG TAB PO SCH (10:42)
[2021-06-25] MEDS: PANTOPRAZOLE 40 MG TAB PO SCH ×2 (10:42→21:07)
--- NOTE | 2021-06-25 12:54 | Progress Note ---
Subjective Date of service: 06/25/21 Interval history: 80-year-old female with history of hypertension and depression from [facility] brought in by EMS for an episode of syncope yesterday and this morning. Also from chest pain. Chest pain is resolved. Patient has a very poor historian. No diaphoresis. No shortness of breath. No precipitating injury events for syncope yesterday and today. No fever or chills. Patient has been confused. No family at bedside. No dysuria fever or chills. 06/24: Still with Bradycardia, awaiting ECHO and stress test result. Patient with bradycardia remains persistent of discontinue beta-bayron today I will also asked the nurses to ambulate her to see what type of response we get with ambulation. Will reevaluate her in a.m. and possibly discharge if all things check out without the beta-bayron. She probably will need evaluation by EP for further evaluation if bradycardia persist and she remains symptomatic 06/25 patient is confused, awake and alert, poor historian, she is oriented only to her name, not in any distress. Lab results reviewed. Cardiology note reviewed, 12 point review of systems is limited due to her poor memory and confusion Assessment and plan Syncope Likely vasovagal Cardiology note reviewed Work-up in progress Continue telemetry Cardiology following Atypical chest pain Complains of pain in the left lower ribs Moderately tender over the area Status post nuclear medicine Lexiscan stress test?? Results pending Hypertension Fair History of GERD Continue PPI History of depression Continue home medication Low TSH Check T4 and T3 Suspect sick euthyroid Objective - Constitutional Vitals: Vital Signs - 12hr 06/25/21 06/25/21 06/25/21 04:01 04:27 04:34 Temperature 98.0 F Pulse Rate 69 140 H Respiratory 16 Rate Blood Pressure 145/65 O2 Sat by Pulse 100 99 Oximetry 06/25/21 06/25/21 07:08 07:10 Temperature 97.7 F Pulse Rate 65 Respiratory 18 Rate Blood Pressure 130/67 O2 Sat by Pulse 90 96 Oximetry General appearance: Present: no acute distress, cachectic - EENT Eyes: PERRL, EOM intact ENT: hearing intact - Neck Neck: supple, normal ROM - Respiratory Respiratory effort: normal Respiratory: bilateral: CTA - Cardiovascular Rhythm: regular Heart Sounds: Present: S1 & S2 Extremities: No edema - Gastrointestinal General gastrointestinal: Present: soft, non-tender Rectal Exam: deferred - Integumentary Integumentary: clear - Neurologic Neurologic: no focal deficits, moves all extremities - Labs CBC & Chem 7: 06/24/21 05:11 06/24/21 05:11 HEART Score - HEART Score EKG: Non-specific Age: > 65 Risk factors: 1-2 risk factors Troponin: Troponin T < 0.010 ng/mL (0.00-0.029) 06/23/21 09:51 Troponin: < normal limit - Critical Actions Critical Actions: 4-6 pts:12-16.6% risk of adverse cardiac event. Should be admitted
--- NOTE | 2021-06-25 14:53 | Progress Note ---
Assessment and Plan Syncope Hypertension MDD Low TSH level MPI stress test 06/24/2021-negative for signs of ischemia ECHO 06/26: EF 55-60%, grade I diastolic dysfunction No events on telemetry. The patient is in sinus rhythm with heart rates in the 60s. She has intermittent episodes of heart rates in the 40s but no long pauses. Blood pressure stable. Consider amlodipine 2.5 mg daily for blood pressure control. Unless contraindicated Stable cardiac status. Low TSH level refer to primary team Subjective Date of service: 06/25/21 Principal diagnosis: Syncope Interval history: Patient lying in the bed without any complaints. She denies any chest pain, shortness of breath, or dizziness. She reports that yesterday was her birthday given that she had been poked quite a bit. Objective Vital Signs Temp Pulse Resp BP Pulse Ox 06/25/21 07:10 96 06/25/21 07:08 97.7 F 65 18 130/67 90 06/25/21 04:34 140 H 06/25/21 04:27 99 06/25/21 04:01 98.0 F 69 16 145/65 100 06/25/21 00:26 97.9 F 84 18 131/65 99 06/24/21 20:36 97.5 F L 79 16 131/70 98 06/24/21 16:22 98.2 F 84 18 127/85 98 06/24/21 16:18 97.4 F L 54 L 18 152/66 100 - Physical Examination HEENT: Positive: PERRL Neck: Positive: trachea midline Cardiac: Positive: Reg Rate and Rhythm Lungs: Positive: clear to auscultation Neuro: Positive: Grossly Intact Abdomen: Positive: Soft Skin: Negative: Rash, Suspicious Lesions Extremities: Present: upper extr. pulses. Absent: edema - Imaging and Cardiology EKG: report reviewed, image reviewed - EKG Sinus rhythms and dysrhythmias: sinus rhythm
--- NOTE | 2021-06-25 15:47 | Treadmill Report ---
DATE OF SERVICE: 06/23/2021 NUCLEAR PERFUSION SCAN REFERRING PHYSICIAN: Hospitalist service. PROTOCOL: The patient was assessed in postoperative state, given 10 mCi of technetium at rest. The patient had rest imaging. The patient underwent Lexiscan stress test per standard protocol. At peak stress, the patient given 26 mCi of technetium. Shortly, thereafter, the patient had stress imaging. Raw imaging reveals mild GI artifact, no significant motion effect. SPECT imaging examined carefully in horizontal long axis, vertical long axis, short axis views. There was normal homogeneous uptake of radioisotope in all port segments. No evidence of significant fixed or reversible perfusion defect suggestive of prior infarction or ischemia. Gated wall motion reveals normal systolic thickening, calculated ejection fraction of 62%. No TID. CONCLUSIONS: 1. Normal myocardial perfusion scan without evidence of active ischemia or prior infarction. 2. Normal left ventricular systolic performance without evidence of transient ischemic dilatation or stress induced segmental wall motion abnormalities. TID: [id number] RECEIPT: [id number] FABBY/JONH
[2021-06-25] MEDS ORDERED: LORazepam 2 MG/ML VIAL IV PRN (16:44)
[2021-06-25] MEDS: SODIUM CHLORIDE 0.9% 1000 ML 1,000 ML IV SCH (18:18)
[2021-06-25] MEDS: traZODone 100 MG TAB PO SCH (21:07)
[2021-06-26] MEDS: HEPARIN 5,000 UNIT/1 ML VIAL SUB-Q SCH (10:10)
[2021-06-26] MEDS: SERTRALINE 25 MG TAB PO SCH (10:10)
[2021-06-26] MEDS: PANTOPRAZOLE 40 MG TAB PO SCH (10:10)
--- NOTE | 2021-06-26 11:27 | Discharge Summary ---
Providers - Providers Date of Admission: 06/23/21 15:30 Date of discharge: 06/26/21 Attending physician: RIMA MANN 06/24/21 07:33 Consult to Physician [CONS] Routine Comment: Consulting Provider: DARA HAJI Physician Instructions: Reason For Exam: SYNCOPE Primary care physician: TOOLMAKER Hospitalization Condition: Good Pertinent studies: CTA chest negative for PE Carotid Doppler-less than 50% stenosis bilaterally Echocardiogram EF 50 to 55% with mild-diastolic dysfunction Hospital course: 80-year-old female with history of hypertension and depression from [facility] brought in by EMS for an episode of syncope yesterday and this morning. Also from chest pain. Chest pain is resolved. Patient has a very poor historian. No diaphoresis. No shortness of breath. No precipitating injury events for syncope yesterday and today. No fever or chills. Patient has been confused. No family at bedside. No dysuria fever or chills. 06/24: Still with Bradycardia, awaiting ECHO and stress test result. Patient with bradycardia remains persistent of discontinue beta-bayron today I will also asked the nurses to ambulate her to see what type of response we get with ambulation. Will reevaluate her in a.m. and possibly discharge if all things check out without the beta-bayron. She probably will need evaluation by EP for further evaluation if bradycardia persist and she remains symptomatic 06/25 patient is confused, awake and alert, poor historian, she is oriented only to her name, not in any distress. Lab results reviewed. Cardiology note reviewed, 06/26 patient is confused, not in any distress, has bilateral wrist restraints. Discussed with RN to remove the restraints and if stable can be discharged back to the facility. Discussed with patient's son over the phone. 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 Follow-up with PCP Disposition: 03 [facility]-TERM FACILITY Final Discharge Diagnosis (Prints w/discharge instructions): Syncope/ bradycardia/ Time spent for discharge: 38 minutes Core Measure Documentation - Palliative Care Palliative Care/ Comfort Measures: Not Applicable - Core Measures Any of the following diagnoses?: none Exam - Constitutional Vitals: Temp Pulse Resp BP Pulse Ox 97.5 F L 47 L 18 148/73 100 06/26/21 07:28 06/26/21 07:28 06/26/21 07:28 06/26/21 07:28 06/26/21 07:28 General appearance: Present: no acute distress, other (Confused) - EENT Eyes: Present: PERRL, EOM intact ENT: hearing intact - Neck Neck: Present: supple, normal ROM. Absent: masses or JVD - Respiratory Respiratory effort: normal Respiratory: bilateral: CTA - Cardiovascular Rhythm: regular Heart Sounds: Present: S1 & S2 - Extremities Extremities: No edema - Abdominal General gastrointestinal: Present: soft, non-tender Female genitourinary: Present: deferred - Rectal Rectal Exam: deferred - Integumentary Integumentary: Present: clear - Psychiatric Psychiatric: other (Confused and oriented to name only) - Neurologic Neurologic: no focal deficits, moves all extremities Plan Activity: up only with assistance, fall precautions Weight Bearing Status: Weight Bear as Tolerated Diet: regular, low fat, low cholesterol, low salt Follow up with: PRIMARY CARE, [Primary Care Provider] - 3-5 Days Prescriptions: Amlodipine Besylate [Norvasc] 2.5 mg PO DAILY #30 tablet Pantoprazole [Protonix TAB] 40 mg PO DAILY #30 tablet Sertraline [Zoloft] 25 mg PO QDAY #30 tablet
[2021-06-26 11:37] VITALS: BP 163/70
--- NOTE | 2021-06-26 11:42 | Progress Note ---
Assessment and Plan Syncope Hypertension MDD Low TSH level MPI stress test 06/24/2021-negative for signs of ischemia ECHO 06/26: EF 55-60%, grade I diastolic dysfunction No events on telemetry. The patient is in sinus rhythm with heart rates in the 60s. She has intermittent episodes of heart rates in the 40s but no long pauses. Consider amlodipine 2.5 mg daily for blood pressure control. Stable cardiac status. Low TSH level refer to primary team Subjective Date of service: 06/26/21 Principal diagnosis: Syncope Interval history: Patient lying in the bed without any complaints. Objective Vital Signs Temp Pulse Resp BP BP Pulse Ox 06/26/21 11:36 97.8 F 48 L 18 163/70 94 06/26/21 07:28 97.5 F L 47 L 18 148/73 100 06/26/21 05:24 97.8 F 55 L 16 169/80 100 06/25/21 23:37 97.4 F L 49 L 16 178/81 97 06/25/21 21:00 46 L 06/25/21 19:58 99 06/25/21 19:36 98.4 F 55 L 16 177/75 100 06/25/21 16:23 98.8 F 56 L 18 153/71 99 06/25/21 16:00 89 95 - Physical Examination HEENT: Positive: PERRL Neck: Positive: trachea midline Cardiac: Positive: Reg Rate and Rhythm Lungs: Positive: Normal Exam, Normal Breath Sounds Neuro: Positive: Grossly Intact Abdomen: Positive: Soft Skin: Negative: Rash, Suspicious Lesions Extremities: Present: upper extr. pulses. Absent: edema - Imaging and Cardiology EKG: report reviewed, image reviewed Echo: report reviewed - EKG Sinus rhythms and dysrhythmias: sinus rhythm
== END 2021-06-26 17:17 ==
LOC: ED 09:04 → 4A 15:30
PROVIDERS: ADMIT Internal Medicine; ATTEND Internal Medicine
DX: R07.89 Other chest pain (principal); Z20.822 Contact with and (suspected) exposure to COVID-19; R55 Syncope and collapse; I10 Essential (primary) hypertension; F03.90 Unspecified dementia, unspecified severity, without behavioral disturbance, psychotic disturbance, mood disturbance, and anxiety; K21.9 Gastro-esophageal reflux disease without esophagitis; F32.A Depression, unspecified; R00.1 Bradycardia, unspecified; Z87.898 Personal history of other specified conditions
CPT/HCPCS: 36415; 70450; 71045; 71275; 78452; 80053; 81001; 83735; 83880; 84436; 84443; 84481; 84484; 85025; 85379; 85610; 93005; 93017; 93306; 93880; 96361; 96372; 96374; 96375; 96376; 99285; A9502; C9113; G0378; J1644; J2060; J2250; J2405; J2785; J7030; J7050; Q9967; U0003; Q0162